=== PATIENT | female | born 1945 | race Asian ===

== ENCOUNTER 2020-12-23 23:00 | Emergency (ER) | payer BC ==
[~2020-12-23] VITALS: Ht 165.1 cm; Wt 69.9 kg
[2020-12-23 23:11] VITALS: BP 164/83; Ht 165.1 cm; Wt 69.9 kg
== END 2020-12-24 00:46 | disposition home or self-care (01) ==
LOC: ED 23:00
DX: T18.128A Food in esophagus causing other injury, initial encounter (principal); I10 Essential (primary) hypertension; Z90.49 Acquired absence of other specified parts of digestive tract